=== PATIENT | female | born 1980 | race Caucasian/White ===

== ENCOUNTER → 2020-07-02 | Outpatient (CLI) | payer OTHER ==
[2020-07-02 16:25] LABS: HEMOGLOBIN 11.9 gm/dl (12.3-15.3); RED BLOOD COUNT 4.99 M/UL (4.00-5.10); WHITE BLOOD COUNT 9.5 K/UL (4.5-11.0)
[2020-07-02 16:54] LABS: BUN/CREATININE RATIO 7 (0-10)
== END ==
LOC: LAB 15:23
PROVIDERS: Physician Assistant Medical
DX: Z00.00 Encounter for general adult medical examination without abnormal findings (principal); I10 Essential (primary) hypertension; E66.9 Obesity, unspecified; R53.83 Other fatigue
CPT/HCPCS: 36415; 80053; 83036; 84443; 85027

== ENCOUNTER 2021-12-23 16:43 | Emergency (ER) | payer SELFPAY ==
[2021-12-23 19:00] LABS: HEMOGLOBIN 13.6 gm/dl (12.3-15.3); RED BLOOD COUNT 5.14 M/UL (4.00-5.10); WHITE BLOOD COUNT 11.2 K/UL (4.5-11.0)
[2021-12-23 19:30] LABS: BUN/CREATININE RATIO 11 (0-10)
[2021-12-23] MEDS ORDERED: TORADOL 10 MG T10 MG PO (21:59)
[2021-12-23] MEDS ORDERED: PROTONIX 40 MG40 M1 PO (21:59)
[2021-12-23] MEDS ORDERED: CYCLOBENZAPRINE10 MG PO (21:59)
== END 2021-12-23 22:25 | disposition home or self-care (01) ==
LOC: ER1 16:43
PROVIDERS: Emergency Medicine
DX: R10.9 Unspecified abdominal pain (principal); M79.18 Myalgia, other site; E66.01 Morbid (severe) obesity due to excess calories
CPT/HCPCS: 80053; 81001; 83690; 84703; 85025; 85652; 86140; 96374; 96375; 99284; J1170; J1885; J2405; Q9967